=== PATIENT | male | born 1990 | race Caucasian/White ===

== ENCOUNTER 2018-06-07 05:06 | Day surgery (SDC) | payer BC ==
[2018-06-07] MEDS ORDERED: LACTATED RINGERS 1,000 ML IV ONE (05:33)
[2018-06-07] MEDS ORDERED: FAMOTIDINE/PF 20 MG/2 ML VIAL ONE (05:33)
[2018-06-07] MEDS ORDERED: ONDANSETRON HCL/PF 4 MG/ 2ML VIAL ONE (08:48)
[2018-06-07] MEDS ORDERED: LACTATED RINGERS 1,000 ML IV.SOLN IV ONE (08:48)
[2018-06-07] MEDS ORDERED: SUGAMMADEX 200 mg/2mL 200 MG/2 ML VIAL IV ONE (08:48)
[2018-06-07] MEDS ORDERED: DEXAMETHASONE SOD PHOS 4 MG/ML VIAL ONE (08:48)
[2018-06-07] MEDS ORDERED: SEVOFLURANE 250 ML LIQUID IH ONE (08:48)
[2018-06-07] MEDS ORDERED: LIDOCAINE HCL/PF 2% 100 MG/5 ML VIAL IJ ONE (08:48)
[2018-06-07] MEDS ORDERED: ceFAZolin SODIUM 1 GM VIAL ONE (08:48)
[2018-06-07] MEDS ORDERED: ROCURONIUM BROMIDE 10 MG/ML 5ML VIAL ONE (08:48)
[2018-06-07] MEDS ORDERED: MIDAZOLAM HCL 2 MG/2 ML VIAL ONE (08:48)
[2018-06-07] MEDS ORDERED: FENTANYL 250MCG/5ML VIAL ONE (08:48)
[2018-06-07] MEDS ORDERED: PROPOFOL 200 MG/20 ML VIAL IV ONE (08:48)
[2018-06-07] MEDS ORDERED: ePHEDrine SULFATE 50 MG/1 ML IVP ONE (08:48)
[2018-06-07] MEDS ORDERED: fentaNYL CITRATE/PF 100 MCG/ 2ML AMP ONE (09:15)
[2018-06-07] MEDS ORDERED: oxyCODONE/ACETAMINOPHEN 5/325 TABLET PO ONE (10:14)
[2018-06-07] MEDS ORDERED: oxyCODONE HCL 5 MG TABLET ONE (10:14)
[2018-06-07] MEDS ORDERED: oxyCODONE/ACETAMINOPHEN 5/325 TABLET PO PRN (10:48)
[2018-06-07] MEDS ORDERED: oxyCODONE HCL 5 MG TABLET PO PRN (10:49)
[2018-06-07] MEDS ORDERED: 0.9 % SODIUM CHLORIDE 1,000 ML IV SCH (11:00)
[2018-06-07] MEDS ORDERED: PROMETHAZINE HCL 25 MG in 0.9 % SODIUM CHLORIDE 50 ML IV PRN (11:05)
== END 2018-06-07 05:08 ==
LOC: OPSURG 05:06 → SOUTH 10:32 → UNDOADMIN 10:32
PROVIDERS: ATTEND Orthopaedic Surgery
DX: M51.26 Other intervertebral disc displacement, lumbar region (principal); M48.062 Spinal stenosis, lumbar region with neurogenic claudication
CPT/HCPCS: 63030; A9270; J0690; J1100; J2001; J2250; J2405; J2704; J3010; J7120; S0028